=== PATIENT | female | born 1965 | race African-American/Black ===

== ENCOUNTER 2017-05-11 13:22 | Outpatient (CLI) | payer OTHER | END 2017-05-11 13:23 | disposition home or self-care (01) | LOC: DTY/OP 13:22 | PROVIDERS: ATTEND Specialist | DX: Z00.00 Encounter for general adult medical examination without abnormal findings (principal) | CPT/HCPCS: 97802 ==

== ENCOUNTER 2017-06-18 11:30 | Inpatient (IN) | payer MEDICARE ==
[2017-06-24] MEDS ORDERED: Heparin 5,000 UNITS/ML VIAL ONE (06:28)
[2017-06-24] MEDS ORDERED: Scopolamine 1.5 mg/72 hour Patch ONE (06:29)
[2017-06-24] MEDS ORDERED: Ketorolac Tromethamine 30 MG/ML VIAL ONE (06:29)
[2017-06-24] MEDS ORDERED: Bupivacaine 0.5% 10 ML VIAL ONE (06:46)
[2017-06-24] MEDS ORDERED: Lidocaine 2% w/Epinephrine 1:200K 20 ML VIAL ONE (06:46)
[2017-06-24] MEDS ORDERED: HYDROmorphone 0.5 MG/0.5 ML SYRINGE ONE (07:20)
[2017-06-24] MEDS ORDERED: Fentanyl 100 MCG/2 ML VIAL ONE (07:20)
[2017-06-24] MEDS ORDERED: Midazolam HCl 2 mg/2 ml Vial ONE (07:25)
[2017-06-24] MEDS ORDERED: Scopolamine 1.5 mg/72 hour Patch TOP SCH (07:30)
[2017-06-24] MEDS ORDERED: cefOXitin 2 GM, Syringe 1 ML in Sterile Water 10 ML SLOW IVP SCH (07:30)
[2017-06-24] MEDS ORDERED: Promethazine HCl 25 MG/ML VIAL IM PRN ×2 (11:08→12:03)
[2017-06-24] MEDS ORDERED: Promethazine HCl 25 MG/ML VIAL SLOW IVP PRN (11:08)
[2017-06-24] MEDS ORDERED: HYDROmorphone 2 MG/ML VIAL SLOW IVP PRN (11:08)
[2017-06-24] MEDS ORDERED: Ondansetron HCl/PF 4 MG/2 ML Vial IVP PRN ×2 (11:08→12:03)
[2017-06-24] MEDS ORDERED: diphenhydrAMINE 50 MG/ML VIAL IVP PRN (12:03)
[2017-06-24] MEDS ORDERED: Dextrose 50% Abboject 50 ML SYRINGE SLOW IVP PRN (12:03)
[2017-06-24] MEDS ORDERED: hydrALAZINE 20 MG/ML VIAL SLOW IVP PRN (12:03)
[2017-06-24] MEDS ORDERED: Dextrose 5% in Water 1,000 ML IV PRN (12:03)
[2017-06-24] MEDS: Ketorolac Tromethamine 30 MG/ML VIAL IVP SCH ×2 (12:24→17:33)
[2017-06-24] MEDS: 1/2 NS w/KCL 20 mEq 1,000 ML IV SCH (12:26)
[2017-06-24] MEDS: Hydrocodone-Acetamin 15 ML UDCUP PO PRN (15:09)
[2017-06-24] MEDS ORDERED: Glycopyrrolate 0.2 MG/ML 5 ML SYRINGE ONE (16:37)
[2017-06-24] MEDS ORDERED: Ondansetron HCl/PF 4 MG/2 ML Vial ONE (16:37)
[2017-06-24] MEDS ORDERED: Propofol 200 MG/20 ML VIAL ONE (16:37)
[2017-06-24] MEDS ORDERED: Dexamethasone 20 MG/5 ML VIAL ONE (16:37)
[2017-06-24] MEDS ORDERED: Lidocaine 1% PF 5 ML VIAL ONE (16:37)
[2017-06-24] MEDS ORDERED: PHENYLEPHRINE-NS 100 MCG/ML 10 ML SYRINGE ONE (16:37)
--- NOTE | 2017-06-24 18:58 | OP ---
DATE OF PROCEDURE: 06/24/2017 PREOPERATIVE DIAGNOSIS: Morbid obesity with multiple comorbidities. POSTOPERATIVE DIAGNOSIS: Morbid obesity with multiple comorbidities. OPERATION PERFORMED: Laparoscopic gastric bypass. SURGEON: Flavio Poole M.D. CHAINSTITCH BINDER: Jatinder Jon M.D. ANESTHESIA: General endotracheal. INDICATIONS: The patient is a 51-year-old black female with a BMI of 35 and diabetes. She is taken to the operating room at this time for laparoscopic gastric bypass. OPERATIVE PROCEDURE IN DETAIL: Informed consent was obtained. The patient was taken to the operatin g room where general endotracheal anesthesia was obtained with the patient in supine position. Abdom en was prepped with ChloraPrep and draped in sterile fashion. Local anesthetic was infiltrated and 5 mm supraumbilical incision was created through which a Veress needle was passed into the peritoneal cavity and pneumoperitoneum established using carbon dioxide to a pressure of 15 mmHg. A 5 mm trocar port was passed through this same incision. Laparoscopic camera was passed through this port. Unde r direct vision, 4 additional ports were placed including bilateral subcostal 5 mm ports, a right par amedian 12 mm port, and left paramedian 15 mm port. Examination revealed that they were fairly dense omental adhesions to the anterior abdominal wall just inferior to the supraumbilical port placement. These were taken down carefully using LigaSure. Fortunately, there was no bowel involved in the ad hesions. Once the adhesions were adequately mobilized, the omentum was split in the midline up to th e transverse colon. The ligament of Treitz was then identified and 50 cm distally, I divided the sma ll intestine with a single fire of the white load of the Cumming stapler. The distal segment of smal l bowel was devascularized for 5 cm. I then traced the small bowel distally 100 cm. I then performe d an anastomosis between the biliary limb and the Golden limb using a single fire of the white load of the Cumming stapler. The common enterotomy was then closed using another firing with the same staple r. The mesenteric defect was closed with a couple of interrupted [id number] sutures of 3-0 Vicr yl. The omentum was then moved inferiorly. The patient was placed in reverse Trendelenburg. A 5 mm epig astric incision was created through which Nathansen retractor was passed into the abdominal cavity an d used to elevate the left lobe of the liver. The liver was without significant fatty infiltration. The angle of His was carefully dissected. I then identified the gastroesophageal junction and 5 cm distally along the lesser curvature. I dissected the lesser omentum to gain access into the lesser s ac. I then fired a blue load of the Cumming stapler across the stomach at this level. A gastrotomy was created inferiorly and through the gastrotomy, I passed the anvil of a 25 mm stapler into the upp er pouch. Using the 5 mm band passer, the spike of the anvil was then brought out through the anteri or gastric wall just proximal to the staple line. The gastrotomy was closed with a couple fires of t he Cumming stapler. The gastric pouch was then completed with 2 fires of the blue load of the Echelo n stapler leading up to the angle of His. The spike was removed from within the anvil. The Golden limb of the small bowel was brought into the u pper abdomen and an enterotomy was created in the devascularized segment. The 25 mm EEA stapler was advanced through the enterotomy and the small bowel. It was positioned appropriately and the spike w as advanced through the antimesenteric portion of the small bowel where it was fixed to the anvil wit hin the gastric pouch. These two segments were approximated and an anastomosed by firing the stapler . The stapler was removed and donuts were inspected and found to be intact. The devascularized segm ent of small bowel was then resected with a final firing of the stapler. The gastrojejunostomy was b uttressed with 3 interrupted sutures of 3-0 Vicryl. An orogastric tube was then advanced through the gastric pouch into the small bowel. A leak test was performed with the anastomosis under water and there was no evidence of air leak at the anastomosis. All fluid within the upper abdomen was aspirat ed. There was no evidence of any bleeding. Nathansen retractor was removed. The fascial defect at the 12 and 15 mm port sites were closed with 0 Vicryl suture using a GraNee needle. All ports and in struments were removed under direct vision. Pneumoperitoneum was carefully evacuated. 0.25% Marcain e with epinephrine was infiltrated in each port site. Skin edges approximated with 4-0 Monocryl subc uticular suture. Dermabond was placed externally. There were no complications. The patient tolerat ed the procedure well and was taken to recovery in stable condition.
[2017-06-24] MEDS ORDERED: Enoxaparin Sodium 40 MG/0.4 ML SYRINGE SC SCH (21:00)
[2017-06-25] MEDS: Ketorolac Tromethamine 30 MG/ML VIAL IVP SCH ×2 (00:04→06:49)
[2017-06-25] MEDS: Hydrocodone-Acetamin 15 ML UDCUP PO PRN ×2 (00:05→09:43)
[2017-06-25] MEDS: 1/2 NS w/KCL 20 mEq 1,000 ML IV SCH ×2 (00:33→07:39)
[2017-06-25] MEDS: HumaLOG 300 UNITS/3 ML VIAL SC PRN ×2 (00:35→06:53)
[2017-06-25 04:20] LABS: #Neutrophils 12.4 thou/uL (1.40-6.50); %Eosinophils 0.2 % (0.0-10.0); %Lymphocytes 13.1 % (21.0-51.0); %Monocytes 6.2 % (0.0-10.0); %Neutrophils 80.5 % (42.0-75.0); Hemoglobin 10.8 g/dL (12.0-16.0); Mean Corpuscular HGB CONC 32.8 g/dL (32.0-36.0); Mean Corpuscular Hemoglobin 30.1 pg (27.0-31.0); Mean Corpuscular Volume 91.8 fl (81.0-99.0); Mean Platelet Volume 7.9 fL (7.4-10.4); Platelet Count 272 thou/uL (130-400); RBC Distribution Width 12.3 % (11.5-14.5); Red Blood Cell (RBC) Count 3.58 mill/uL (4.20-5.40); White Blood Cell (WBC) Count 15.4 thou/uL (4.8-10.8)
[2017-06-25 04:33] LABS: Anion Gap 9 mmol/L (10-20); BUN (Urea Nitrogen) 13 mg/dL (7.0-18.7); Calc. Creatinine Clearance 103 mL/min (70-130); Calcium 8.9 mg/dL (7.8-10.44); Carbon Dioxide 25 mmol/L (22-29); Chloride 106 mmol/L (98-107); Estimated GFR-MDRD 71; Glucose 203 mg/dL (70-105); Potassium 4.3 mmol/L (3.5-5.1); Sodium 136 mmol/L (136-145)
[2017-06-25] MEDS ORDERED: Glimepiride 4 MG TAB PO SCH (07:30)
[2017-06-25] MEDS ORDERED: Gabapentin 300 MG CAP PO SCH (09:00)
[2017-06-25] MEDS ORDERED: Pantoprazole 40 MG VIAL IVP SCH (09:00)
[2017-06-25 11:31] VITALS: BMI 34.0
[2017-06-25 11:32] VITALS: BP 108/72; TEMP 98.7
--- NOTE | 2017-06-26 00:22 | DIS ---
DATE OF ADMISSION: 06/24/2017 DATE OF DISCHARGE: 06/25/2017 HOSPITAL COURSE: Ms. Diaz is postoperative day #1 following laparoscopic gastric bypass. She has had an uneventful night. Her vital signs and laboratory studies are unremarkable. She is toleratin g her bariatric clear liquid diet and her pain is well controlled. She is felt to be stable for disc harge home today. She was given a discharge prescription for hydrocodone Elixir. She is asked to re sume her preoperative medications and instructed in how to use them. She will follow up with myself in 2 weeks.
== END 2017-06-25 11:43 | disposition home or self-care (01) | DRG 621 ==
LOC: SURG A 11:40 → UNDOADMIN 11:40 → SURG A 06-24 06:20
PROVIDERS: ADMIT Specialist; ATTEND Specialist
PROC: 0D164ZA Bypass Stomach to Jejunum, Percutaneous Endoscopic Approach (ICD-10-PCS; principal; 2017-06-24)
DX: E66.01 Morbid (severe) obesity due to excess calories (principal); E11.9 Type 2 diabetes mellitus without complications; Z68.35 Body mass index [BMI] 35.0-35.9, adult; K21.9 Gastro-esophageal reflux disease without esophagitis; M79.7 Fibromyalgia; M06.9 Rheumatoid arthritis, unspecified; E78.5 Hyperlipidemia, unspecified
CPT/HCPCS: 36415; 36416; 80048; 85025; 94760; A4216; C9113; J0131; J0694; J1100; J1170; J1644; J1650; J1885; J2001; J2250; J2270; J2405; J2704; J3010; J3490

== ENCOUNTER 2017-06-18 11:38 | Outpatient (CLI) | payer MEDICARE | END 2017-06-18 11:39 | disposition home or self-care (01) | LOC: LABBT 11:38 | PROVIDERS: ATTEND Specialist | DX: Z01.818 Encounter for other preprocedural examination (principal); E66.01 Morbid (severe) obesity due to excess calories ==

== ENCOUNTER 2017-06-27 15:54 | Inpatient (IN) | payer MEDICARE ==
[~2017-06-27 15:54] MED LIST: ISOVUE-370 76%-LOCM 1 ML ONE; Iopamidol 370 76% 50 ML VIAL FS ONE
[2017-06-27] MEDS ORDERED: Sodium Chloride 0.9% 2,000 ML IV SCH (16:15)
[2017-06-27] MEDS ORDERED: Ondansetron HCl/PF 4 MG/2 ML Vial IVP PRN (16:43)
[2017-06-27] MEDS ORDERED: Insulin Regular 300 UNITS/3 ML VIAL SC PRN (16:43)
[2017-06-27] MEDS ORDERED: Dextrose 50% Abboject 50 ML SYRINGE SLOW IVP PRN (16:43)
[2017-06-27] MEDS ORDERED: hydrALAZINE 20 MG/ML VIAL SLOW IVP PRN (16:43)
[2017-06-27] MEDS ORDERED: Lorazepam 2 MG/ML VIAL SLOW IVP PRN (16:43)
[2017-06-27] MEDS ORDERED: Dextrose 5% in Water 1,000 ML IV PRN (16:43)
[2017-06-27] MEDS ORDERED: Ondansetron ODT 4 MG TAB PO PRN (16:43)
[2017-06-27] MEDS ORDERED: D5 1/2 NS w/20 mEq KCL 1,000 ML IV SCH (16:45)
[2017-06-27] MEDS ORDERED: Acetaminophen 1,000 MG in Premix Bag 1 BAG IVPB PRN (16:50)
[2017-06-27] MEDS ORDERED: Ketorolac Tromethamine 30 MG/ML VIAL IVP PRN (16:51)
[2017-06-27] MEDS ORDERED: Ondansetron ORAL SOLN. 4 MG/5 ML UDCUP PO PRN ×2 (16:59)
[2017-06-27] MEDS ORDERED: Ondansetron ODT 8 MG TAB SL PRN (16:59)
[2017-06-27] MEDS ORDERED: Ondansetron ODT 8 MG TAB PO PRN (16:59)
[2017-06-27] MEDS ORDERED: FLU VACC QS2017-18 36 mo. & older 0.5 ML SYRINGE IM ONE (18:30)
--- NOTE | 2017-06-27 18:56 | CT ---
CT ABDOMEN AND PELVIS WITH CONTRAST: Date: 06/27/17 Multiple axial tomograms obtained through abdomen and pelvis with IV enhancement. HISTORY: Gastric bypass procedure on 06/24/17. Nauseated with abdominal pain. FINDINGS: Images through the lung bases reveal bilateral basilar infiltrates seen posteriorly. These findings w ould be concerning for infectious infiltrates, possibly aspiration related. The liver, spleen, and pancreas are unremarkable. Postoperative changes of the stomach consistent wit h the gastric bypass procedure. Contrast does flow into the yahaira limb of the jejunum. The proximal je junum does show mild dilatation. The pancreatobiliary limb appears unremarkable. Distal ileal loops are decompressed. There is dilatation of the jejunum and proximal ileum, and there appears to be a transition zone which is suspicious for a partial small bowel obstruction in the pro ximal to mid small bowel, probably in the region of the distal jejunum. The ileal loops are completel y decompressed and small in caliber. Appendix is unremarkable. No free fluid. IMPRESSION: 1. There are patchy infiltrates in both posterior lung bases. Pneumonia should be excluded clinicall y. 2. Post gastric bypass procedure. The yahaira limb does opacify. There is no extravasation seen. There is dilatation of jejunal loops with a transition zone and completely decompressed ileal loops. These findings are concerning for mechanical small bowel obstruction in the mid to distal jejunum. POS: [facility]
[2017-06-27] MEDS: Enoxaparin Sodium 40 MG/0.4 ML SYRINGE SC SCH (21:09)
[2017-06-27] MEDS: Famotidine/PF 20 mg/2ml Vial SLOW IVP SCH (21:11)
--- NOTE | 2017-06-27 21:29 | HP ---
HISTORY OF PRESENT ILLNESS: Sophie Chacon is a 51-year-old black female living in [place]. She is 4 days status post laparoscopic Golden-en-Y gastric bypass performed by Dr. Poole on 8. She went home on 06/25/2017. The patient called me last night, Wednesday night, 06/26/2017 report ing that she is having some nausea and low grade fever and had few emesis. She states that otherwise she is feeling well and not having any increased pain or respiratory efforts and heart rate seemed t o be normal. The patient, however, called me this morning stating that she was feeling weak, althoug h pain was no worse than it was yesterday. She was brought into the oncology infusion center and sta rted on IV fluid 2 liters bolus infusion. As I arrived, her blood pressure 150/79, respiratory rate 20, temperature 98.6 degrees. The patient looks good, but feels a little weak. She is now being adm itted for a CT scan of abdomen and pelvis as she has had more tenderness than expected post-gastric b ypass and not able to keep liquids down. She reports concentrated urine. ALLERGIES: LATEX and PENICILLINS. TOBACCO: None. ALCOHOL: None. MEDICATIONS: At home, she takes hydrocodone elixir as needed postoperatively, Amaryl 4 mg a.m. with meals, gabapentin 600 mg t.i.d., Premarin 0.625 mg daily, Nexium 40 mg a day, and Soma q.i.d. 350 mg. PAST SURGICAL HISTORY: Carpal tunnel surgery, hysterectomy, breast reduction. PAST MEDICAL HISTORY: Diabetes mellitus, type 2; reflux. REVIEW OF SYSTEMS: Noncontributory as above. PHYSICAL EXAMINATION: VITAL SIGNS: Blood pressure 150/79, 29.6 degrees, heart rate 84. HEAD, EARS, EYES, NOSE AND THROAT: Unremarkable. Sclerae nonicteric. LUNGS: Clear to auscultation. CARDIOVASCULAR: Regular rate and rhythm without murmur or gallop. ABDOMEN: Soft, postoperative changes, ecchymosis about the wounds as expected. She is tender in her lower abdomen with guarding, although not rigid. EXTREMITIES: Unremarkable. LABORATORY DATA: White count 6, hemoglobin 12. Sodium 140, potassium 3.7, chloride 104, BUN 17, cre atinine 0.89, glucose 172. ASSESSMENT AND PLAN: 1. Postoperative nausea and vomiting, abdominal pain. We will admit to the surgery floor. Continue hydration 2 liters of fluid and continue maintenance fluids at 125 an hour. We will obtain a CAT sc an of the abdomen and pelvis. Limited p.o. and IV contrast today for evaluation post-gastric bypass. 2. Type 2 diabetes mellitus. 3. Hypertension.
[2017-06-27] MEDS: Promethazine HCl 25 MG SUPP PR PRN (21:39)
[2017-06-28] MEDS: 1/2 NS w/KCL 20 mEq 1,000 ML IV SCH ×5 (00:13→17:32)
[2017-06-28 05:51] LABS: #Eosinphils 0.2 thou/uL (0.0-0.7); #Lymphocytes 2.4 thou/uL (1.20-3.40); #Neutrophils 3.3 thou/uL (1.40-6.50); %Basophils 0.3 % (0.0-1.0); %Eosinophils 2.5 % (0.0-10.0); %Monocytes 14.3 % (0.0-10.0); %Neutrophils 47.9 % (42.0-75.0); Hemoglobin 10.1 g/dL (12.0-16.0); Mean Corpuscular HGB CONC 32.4 g/dL (32.0-36.0); Mean Corpuscular Hemoglobin 30.3 pg (27.0-31.0); Mean Corpuscular Volume 93.8 fl (81.0-99.0); Mean Platelet Volume 7.9 fL (7.4-10.4); Platelet Count 279 thou/uL (130-400); RBC Distribution Width 12.6 % (11.5-14.5); Red Blood Cell (RBC) Count 3.33 mill/uL (4.20-5.40); White Blood Cell (WBC) Count 6.8 thou/uL (4.8-10.8)
[2017-06-28 06:04] LABS: ALT (SGPT) 59 U/L (8-55); AST (SGOT) 20 U/L (5-34); Albumin 3.1 g/dL (3.5-5.0); Alkaline Phosphatase 54 U/L (40-150); Anion Gap 13 mmol/L (10-20); BUN (Urea Nitrogen) 16 mg/dL (7.0-18.7); Bilirubin, Total 0.4 mg/dL (0.2-1.2); Calc. Creatinine Clearance 137 mL/min (70-130); Calcium 8.7 mg/dL (7.8-10.44); Carbon Dioxide 21 mmol/L (22-29); Chloride 111 mmol/L (98-107); Estimated GFR-MDRD Greater than 90; Globulin 3.5 g/dL (2.4-3.5); Glucose 115 mg/dL (70-105); Potassium 3.7 mmol/L (3.5-5.1); Protein, Total 6.6 g/dL (6.0-8.3); Sodium 141 mmol/L (136-145)
[2017-06-28] MEDS: Famotidine/PF 20 mg/2ml Vial SLOW IVP SCH ×2 (08:05→20:45)
--- NOTE | 2017-06-28 09:47 | RAD ---
ABDOMEN 2 VIEWS WITH 1 VIEW CHEST: Date: 06/28/17 HISTORY: Post abdominal surgery complications. COMPARISON: CT abdomen and pelvis from prior day. FINDINGS: On the upright radiograph, there are linear opacities within both lower lobes, as well as a confluent opacity in the superior segment right lower lobe suggesting pneumonia/aspiration with associated con solidation and atelectasis. No pneumothorax There are multiple air fluid levels throughout the abdomen. Suture material is noted in the left uppe r quadrant of the abdomen. Contrast is seen within the urinary bladder. Ingested contrast is felt to be seen within the colon, a lthough is somewhat dilute. IMPRESSION: 1. Right lower lobe consolidation, as well bibasilar atelectasis. 2. Air fluid levels within the abdomen suggesting ileus or early small bowel obstruction, low grade. There is felt to be contrast outlining some portions of the colon; therefore, a high grade obstructi on is felt less likely. POS: [facility]
--- NOTE | 2017-06-28 11:41 | PRG ---
DATE OF SERVICE: 06/28/2017 Ms. Chacon is postoperative day #4 from laparoscopic gastric bypass. She had what appeared to be an uneventful immediate postoperative course and was discharged home the day after surgery. Unfortunat juvencio, she returned to the hospital yesterday with complaint of nausea and vomiting. She was initially brought in for IV fluid infusion, but since she was unable to tolerate any oral intake she was admit kody for further evaluation. Dr. Watson obtained this in my absence. CT scan was obtained revealing what appeared to be a distal small-bowel obstruction beyond the jejunojejunostomy. There was no evid ence of a leak or acute intra-abdominal process otherwise. It was noted during the surgery that she had significant adhesions inferiorly from prior surgery. Ewa campos notes that she vomited multiple times yesterday. PHYSICAL EXAMINATION: VITAL SIGNS: Today she is afebrile, pulse 76, blood pressure 132/83. LUNGS: Clear to auscultation. ABDOMEN: The abdomen has hypoactive bowel sounds. Incisions are well healed. She has diffuse abdom inal discomfort, possibly from multiple episodes of vomiting. LABORATORY: Revealed essentially normal CBC with a white blood cell count of 6.8 and a normal differ ential. Her chemistry panel reveals some mild electrolyte abnormalities. ASSESSMENT AND PLAN: The patient who appears to have a distal small-bowel obstruction. This is some combination of coincidental and unfortunate given her recent gastric bypass surgery. She cannot be treated with nasogastric decompression. So for now, I have recommended ice chips for today with ambu lation and a repeat CT scan tomorrow with contrast. If there is evidence of persistent obstruction t burton I would likely recommend a laparoscopy versus laparotomy to evaluate and treat this. I have disc ussed this with the patient. She understands and agrees to proceed in this fashion.
[2017-06-28] MEDS: Enoxaparin Sodium 40 MG/0.4 ML SYRINGE SC SCH (20:45)
[2017-06-28] MEDS: Promethazine HCl 25 MG SUPP PR PRN (21:31)
[2017-06-29] MEDS: 1/2 NS w/KCL 20 mEq 1,000 ML IV SCH ×2 (00:26→07:04)
[2017-06-29 04:08] LABS: #Eosinphils 0.2 thou/uL (0.0-0.7); #Lymphocytes 3.3 thou/uL (1.20-3.40); #Monocytes 0.8 thou/uL (0.11-0.59); %Basophils 0.3 % (0.0-1.0); %Eosinophils 2.9 % (0.0-10.0); %Lymphocytes 44.9 % (21.0-51.0); %Monocytes 11.2 % (0.0-10.0); %Neutrophils 40.7 % (42.0-75.0); Hemoglobin 10.6 g/dL (12.0-16.0); Mean Corpuscular HGB CONC 31.8 g/dL (32.0-36.0); Mean Corpuscular Hemoglobin 29.6 pg (27.0-31.0); Mean Platelet Volume 8.4 fL (7.4-10.4); Platelet Count 202 thou/uL (130-400); RBC Distribution Width 12.6 % (11.5-14.5); Red Blood Cell (RBC) Count 3.58 mill/uL (4.20-5.40); White Blood Cell (WBC) Count 7.3 thou/uL (4.8-10.8)
[2017-06-29 04:27] LABS: Anion Gap 12 mmol/L (10-20); BUN (Urea Nitrogen) 12 mg/dL (7.0-18.7); Calc. Creatinine Clearance 149 mL/min (70-130); Calcium 8.4 mg/dL (7.8-10.44); Carbon Dioxide 20 mmol/L (22-29); Chloride 108 mmol/L (98-107); Estimated GFR-MDRD Greater than 90; Glucose 85 mg/dL (70-105); Potassium 3.9 mmol/L (3.5-5.1); Sodium 136 mmol/L (136-145)
[2017-06-29] MEDS: Famotidine/PF 20 mg/2ml Vial SLOW IVP SCH (08:56)
--- NOTE | 2017-06-29 11:21 | CT ---
CT OF THE ABDOMEN AND PELVIS WITH IV CONTRAST: Indication: 5 days post op from bariatric surgery now with diffuse abdominal pain. Comparison: CT evaluation dated 06-27-17. FINDINGS: There is persistent airspace opacity with more confluent consolidation present within both lower lobe s suspicious for evolving pneumonia. There are small bilateral pleural effusions that have increased in size from the comparison study. Contrast is seen within the distal small bowel filling the colon. The extent of the jejunal dilatatio n is less prominent than on the comparison study likely reflecting resolved ileus. Small amount of he morrhage is again noted within the left paracolonic gutter as well as along the anterior aspect of th e left lower quadrant mesentery. There is a normal appendix in the right lower quadrant. There is no overt evidence to suggest leak. There is fatty infiltration of the liver. The spleen, pancreas, adrenal glands, and kidneys appear wi thin normal limits. Visualized bladder, rectum, and perirectal soft tissues are within normal limits. No acute osseous ab normality is evident. IMPRESSION: 1. Bibasilar pneumonia with small bilateral pleural effusions. The extent of the airspace opacities h as worsened since the prior examination with worsening consolidation involving both lower lobes. Ther e is also worsening small bilateral pleural effusions. 2. The extent of the small bowel dilatation involving the jejunum has improved. There is less distens ion of the loops of jejunum within the lower central abdomen likely reflecting sequellae of a resolve d ileus. 3. Small amount of hemorrhage seen within the left paracolonic gutter as well as within the mesentery of the left lower quadrant of the abdomen. 4. Fatty liver. POS: [facility]
[2017-06-29 17:42] VITALS: BP 128/78; TEMP 98.7
--- NOTE | 2017-06-30 02:19 | DIS ---
DATE OF ADMISSION: 06/27/2017 DATE OF DISCHARGE: 06/29/2017 ADMISSION DIAGNOSIS: Small-bowel obstruction. DISCHARGE DIAGNOSIS: Small-bowel obstruction, resolved. HISTORY OF PRESENT ILLNESS: The patient is a 51-year-old black female. She returned to the hospital for 5 days following laparoscopic gastric bypass with complaint of nausea and vomiting and dehydrati on. She underwent CT scan which revealed an unusual presentation consistent with distal small-bowel obstruction. Both of her anastomosis appeared to be intact. As she had just undergone a gastric byp ass, I opted against a nasogastric tube. She was instead placed on bowel rest for almost 48 hours. I then obtained a follow up CT scan, which showed more or less resolution of her bowel obstruction. The contrast did pass through the small bowel and to the colon. She has had couple of bowel movement s today. She denies nausea or vomiting. I resumed her clear liquid diet today after the CT scan, miguel campos has tolerated this nicely. Her vital signs have been within normal limits as of her laboratory jamila dies and examination is unremarkable. At this time, she is stable for discharge home to continue her bariatric liquid diet. I will see her back in a couple of weeks as previously scheduled. She has no new discharge medications and instruc kody to resume the medications as per her prior discharge (on the day after surgery).
== END 2017-06-29 17:57 | disposition home or self-care (01) | DRG 390 ==
LOC: ONC/OP 15:54 → SURG B 18:27
PROVIDERS: ADMIT Specialist; ATTEND Specialist
DX: K56.50 Intestinal adhesions [bands], unspecified as to partial versus complete obstruction (principal); E66.01 Morbid (severe) obesity due to excess calories; E11.9 Type 2 diabetes mellitus without complications; Z98.84 Bariatric surgery status; Z88.0 Allergy status to penicillin; Z91.040 Latex allergy status; Z79.84 Long term (current) use of oral hypoglycemic drugs; K21.9 Gastro-esophageal reflux disease without esophagitis; I10 Essential (primary) hypertension; E86.0 Dehydration; M06.9 Rheumatoid arthritis, unspecified; M79.7 Fibromyalgia; Z68.34 Body mass index [BMI] 34.0-34.9, adult
CPT/HCPCS: 36415; 36416; 74022; 74177; 80048; 80053; 82553; 83690; 84484; 85025; 85610; 85730; 96360; 96361; 96375; 99212; G0463; J0131; J1650; J1885; J2270; J2405; S0028

== ENCOUNTER 2023-02-26 13:17 | Outpatient (CLI) | payer MEDICARE ==
[2023-02-26 15:20] LABS: #Basophils 0.1 10x3/uL (0.0-0.2); #Eosinphils 0.1 10x3/uL (0.0-0.5); #Monocytes 0.4 10x3/uL (0.0-1.1); #Neutrophils 1.9 10x3/uL (1.5-8.4); %Basophils 1.1 % (0.0-2.0); %Eosinophils 1.1 % (0.0-6.0); %Lymphocytes 54.9 % (18.0-47.0); %Monocytes 7.3 % (0.0-10.0); %Neutrophils 35.4 % (40.0-75.0); Hematocrit 33.2 % (34.9-44.5); Mean Corpuscular HGB CONC 33.1 g/dL (32.0-36.0); Mean Corpuscular Hemoglobin 30.3 pg (27.0-33.0); Mean Corpuscular Volume 91.5 fl (81.6-98.3); Mean Platelet Volume 10.3 fl (7.4-10.4); Platelet Count 310 10x3/uL (150-450); RBC Distribution Width 12.9 % (11.5-14.5); Red Blood Cell (RBC) Count 3.63 10x6/uL (3.90-5.03); White Blood Cell (WBC) Count 5.4 10x3/uL (3.5-10.5)
[2023-02-26 15:29] LABS: Anion Gap 14 mmol/L (10-20); BUN (Urea Nitrogen) 18 mg/dL (9.8-20.1); Calc. Creatinine Clearance 0 mL/min (70-130); Calcium 9.1 mg/dL (7.8-10.44); Carbon Dioxide 23 mmol/L (22-29); Chloride 108 mmol/L (98-107); Estimated GFR 58; Glucose 74 mg/dL (70-105); Potassium 4.2 mmol/L (3.5-5.1); Sodium 141 mmol/L (136-145)
== END 2023-02-26 13:18 | disposition home or self-care (01) ==
LOC: LABBT 13:17
PROVIDERS: ATTEND Specialist
DX: Z01.818 Encounter for other preprocedural examination (principal)
CPT/HCPCS: 80048; 85025; 93005; 93010

== ENCOUNTER 2023-03-04 06:21 | Observation (INO) | payer MEDICARE ==
[2023-03-04] MEDS ORDERED: Acetaminophen 500 MG TAB ONE (06:44)
[2023-03-04] MEDS ORDERED: fentaNYL 50 mcg/mL 1 mL Vial ONE ×2 (07:11→10:11)
[2023-03-04] MEDS ORDERED: CEFAZOLIN 2 GM VIAL ONE (07:25)
[2023-03-04] MEDS ORDERED: Sodium Chloride 0.9% 100 ML ONE (07:25)
[2023-03-04] MEDS ORDERED: Ketorolac Tromethamine 30 MG/ML VIAL ONE (07:26)
[2023-03-04] MEDS ORDERED: Lidocaine 1% PF 5 ML VIAL ONE (07:39)
[2023-03-04] MEDS ORDERED: Ondansetron PF 4 MG/2 ML Vial ONE (07:39)
[2023-03-04] MEDS ORDERED: Dexamethasone 20 MG/5 ML VIAL ONE (07:39)
[2023-03-04] MEDS ORDERED: Rocuronium Bromide 10 MG/ML (10ML VIAL) ONE (07:39)
[2023-03-04] MEDS ORDERED: PHENYLEPHRINE-NS 100 MCG/ML 10 ML SYRINGE ONE (07:39)
[2023-03-04] MEDS ORDERED: PROPOFOL 200 MG/20 ML VIAL ONE (07:39)
[2023-03-04] MEDS ORDERED: EPINEPHrine 1 MG/ML VIAL ONE (07:53)
[2023-03-04] MEDS ORDERED: Bupivacaine 0.25% HCL 30 ML VIAL ONE (07:54)
[2023-03-04] MEDS ORDERED: SUGAMMADEX SODIUM 200 MG/2 ML VIAL ONE (09:41)
[2023-03-04] MEDS ORDERED: Promethazine HCl 25 MG/ML VIAL IM PRN ×2 (09:53→10:34)
[2023-03-04] MEDS ORDERED: Ondansetron HCl/PF 4 MG/2 ML Vial IVP PRN (09:53)
[2023-03-04] MEDS ORDERED: HYDROmorphone 0.5 MG/0.5 ML SYRINGE ONE ×3 (10:33→11:26)
[2023-03-04] MEDS ORDERED: Non-Formulary Item 1 EACH (Semaglutide [Ozempic] 2 MG/0.75 ML Pen.Injctr) SQ SCH (10:34)
[2023-03-04] MEDS ORDERED: HYDROcodone/Acetaminophen 7.5/325 mg Tablet PO PRN (10:34)
[2023-03-04] MEDS ORDERED: Ipratropium/Albuterol 3 ML NEB NEB PRN (10:34)
[2023-03-04] MEDS ORDERED: Glucagon 1 MG/ML KIT IM PRN (10:34)
[2023-03-04] MEDS ORDERED: Dextrose 50% Abboject 50 ML SYRINGE SLOW IVP PRN (10:34)
[2023-03-04] MEDS ORDERED: hydrALAZINE 20 MG/ML VIAL SLOW IVP PRN (10:34)
[2023-03-04] MEDS ORDERED: Dextrose 5% in Water 1,000 ML IV PRN (10:34)
[2023-03-04] MEDS ORDERED: SEMAGLUTIDE 2 MG/0.75 ML SC SCH (12:00)
[2023-03-04] MEDS: Morphine 2 MG/ML VIAL SLOW IVP PRN ×3 (13:08→19:05)
[2023-03-04] MEDS ORDERED: Non-Formulary Item 1 EACH (Gabapentin [Gabapentin] 600 MG Tablet) PO SCH (15:00)
[2023-03-04] MEDS: Gabapentin 300 MG CAP PO SCH ×2 (15:02→21:24)
[2023-03-04] MEDS: Ondansetron PF 4 MG/2 ML Vial IVP PRN ×2 (15:03→21:10)
[2023-03-04] MEDS: Lactated Ringer's 1,000 ML IV SCH (15:04)
[2023-03-04 16:56] VITALS: BMI 25.0
[2023-03-04] MEDS ORDERED: FLU VACC QS2023-24(6MOS UP)/PF 60 MCG/0.5 ML SYRINGE IM ONE (18:15)
[2023-03-04] MEDS ORDERED: Atorvastatin Calcium 10 MG TAB PO SCH ×2 (21:00)
[2023-03-04] MEDS: Glimepiride 4 MG TAB PO SCH (21:10)
[2023-03-04] MEDS: Acetaminophen 325 MG TAB PO SCH (21:11)
[2023-03-04] MEDS: Ketorolac Tromethamine 30 MG/ML VIAL IVP SCH (21:12)
[2023-03-04] MEDS: Famotidine 20 MG TAB PO SCH (21:14)
[2023-03-05] MEDS: Ketorolac Tromethamine 30 MG/ML VIAL IVP SCH ×3 (02:38→13:02)
[2023-03-05] MEDS: Acetaminophen 325 MG TAB PO SCH ×3 (02:39→13:02)
[2023-03-05] MEDS: Lactated Ringer's 1,000 ML IV SCH (02:42)
[2023-03-05 05:16] LABS: #Monocytes 0.4 thou/uL (0.11-0.59); #Neutrophils 5.9 thou/uL (1.40-6.50); %Basophils 0.2 % (0.0-1.0); %Eosinophils 0.2 % (0.0-10.0); %Lymphocytes 29.4 % (21.0-51.0); %Monocytes 4.8 % (0.0-10.0); %Neutrophils 65.2 % (42.0-75.0); Hematocrit 28.3 % (36.0-47.0); Hemoglobin 9.3 g/dL (12.0-16.0); Mean Corpuscular HGB CONC 32.9 g/dL (32.0-36.0); Mean Corpuscular Hemoglobin 29.8 pg (27.0-31.0); Mean Corpuscular Volume 90.7 fl (78.0-98.0); Platelet Count 259 10x3/uL (130-400); RBC Distribution Width 13.1 % (11.5-14.5); Red Blood Cell (RBC) Count 3.12 mill/uL (4.20-5.40); White Blood Cell (WBC) Count 9.1 10x3/uL (4.8-10.8)
[2023-03-05 06:04] LABS: Anion Gap 10 mmol/L (10-20); BUN (Urea Nitrogen) 14 mg/dL (9.8-20.1); Calc. Creatinine Clearance 90 mL/min (70-130); Calcium 8.4 mg/dL (7.8-10.44); Carbon Dioxide 25 mmol/L (22-29); Chloride 110 mmol/L (98-107); Estimated GFR 88; Glucose 67 mg/dL (70-105); Potassium 3.8 mmol/L (3.5-5.1); Sodium 141 mmol/L (136-145)
[2023-03-05] MEDS: Gabapentin 300 MG CAP PO SCH ×2 (08:14→15:18)
[2023-03-05] MEDS: Glimepiride 4 MG TAB PO SCH (08:14)
[2023-03-05] MEDS: Famotidine 20 MG TAB PO SCH (08:14)
[2023-03-05] MEDS: Morphine 4 MG/ML VIAL SLOW IVP PRN ×2 (08:15→13:02)
[2023-03-05] MEDS: HYDROcodone/Acetaminophen 7.5/325 mg Tablet PO PRN ×2 (09:14→15:19)
[2023-03-05 16:28] VITALS: BP 154/74
[2023-03-05 16:32] VITALS: TEMP 98.1
== END 2023-03-05 16:39 | disposition home or self-care (01) ==
LOC: SDC 06:21 → MSONC 12:22
PROVIDERS: ADMIT Specialist; ATTEND Specialist
PROC: 0HB7XZZ Excision of Abdomen Skin, External Approach (ICD-10-PCS; principal; 2023-03-04)
DX: L30.4 Erythema intertrigo (principal); M79.3 Panniculitis, unspecified; E11.9 Type 2 diabetes mellitus without complications; M06.9 Rheumatoid arthritis, unspecified; M79.7 Fibromyalgia; Z98.890 Other specified postprocedural states; Z88.0 Allergy status to penicillin; Z79.899 Other long term (current) drug therapy
CPT/HCPCS: 15830; 80048; 85025; 96374; 96375; 96376 ×2; G0378 ×2; J0171; J3010; 36415; 88305; J1100; J1170; J1885; J2270; J2272; J2405; J2704; J3490; J7120; S0020